=== PATIENT | female | born 1945 | race Caucasian/White ===

== ENCOUNTER 2017-04-17 18:15 | Emergency (ER) | payer MEDICARE, OTHER ==
[~2017-04-17] VITALS: Ht 152.4 cm; Wt 76.5 kg
[~2017-04-17 18:15] MED LIST: MOXI400T PO
[2017-04-17 18:26] VITALS: Ht 152.4 cm; Wt 76.5 kg
[2017-04-17] MEDS ORDERED: morphine 4 MG/ML VIAL IM STA (19:16)
[2017-04-17] MEDS ORDERED: ONDANSETRON (ODT) 4 MG TAB ODT STA (19:16)
--- NOTE | 2017-04-17 19:20 | ERD ---
ER Documentation Chief Complaint Chief Complaint pain right side of neck x 4 days. denies injury. seen at [facility] er for same HPI Otherwise healthy 71-year-old female presenting with the chief complaints of 10 out of 10 at neck and right shoulder pain 4 days. No trauma. Denies any medical history. No similar symptoms in the past. Was seen at [facility] 3 days ago. X-rays were unremarkable. Has been taking in [place] without relief. Worse with movement. Patient has no other complaints and describes no other associated manifestations. Nursing notes have been reviewed and are consistent with history given. ROS All systems reviewed and are negative except as per history of present illness. Medications Home Meds Active Scripts Moxifloxacin Hcl* (Avelox*) 400 Mg Tablet, 400 MG PO DAILY for 5 Days, TAB Prov:CYNTHIA RICHARDS 03/25/14 Allergies Allergies: Coded Allergies: cefazolin (Verified Allergy, Severe, 03/22/14) Penicillins (Verified Allergy, Unknown, 03/22/14) clarithromycin (Verified Allergy, Unknown, 03/22/14) metronidazole (Verified Allergy, Unknown, 03/22/14) PMhx/Soc Medical and Surgical Hx: pt denies Medical Hx History of Surgery: Yes (back, B/L shoulder, R knee, L TKR, L THR) Anesthesia Reaction: No Hx Neurological Disorder: No Hx Respiratory Disorders: No Hx Cardiac Disorders: No Hx Psychiatric Problems: No Hx Miscellaneous Medical Probl: No Hx Alcohol Use: No Hx Substance Use: No Hx Tobacco Use: No Smoking Status: Never smoker Physical Exam Vitals Vital Signs Date Time Temp Pulse Resp B/P Pulse Ox O2 Delivery O2 Flow Rate FiO2 04/17/17 18:26 99.0 81 20 166/89 98 Physical Exam Const: [] Head: Atraumatic Eyes: Normal Conjunctiva ENT: Normal External Ears, Nose and Mouth. Neck: Limited range of motion secondary to pain. No midline tenderness. No meningismus or stiffness. Resp: Clear to auscultation bilaterally Cardio: Regular rate and rhythm, no murmurs Abd: Soft, non tender, non distended. Normal bowel sounds Skin: No petechiae or rashes Back: No midline or flank tenderness Ext: Tenderness palpation of the right ACJ and right clavicle. No obvious deformity. Neur: Awake and alert Psych: Normal Mood and Affect Results 24 hrs Current Medications Medications (Trade) Dose Ordered Sig/Florentino Route PRN Reason Start Time Stop Time Status Last Admin Dose Admin Morphine Sulfate (morphine) 4 mg ONCE STAT IM 04/17/17 19:16 04/17/17 19:18 DC 04/17/17 19:37 Ondansetron HCl (Zofran Odt) 4 mg ONCE STAT ODT 04/17/17 19:16 04/17/17 19:18 DC 04/17/17 19:38 Procedures/MDM 8-year-old female presents with a chief complaint of neck pain 4 days. No trauma. Physical exam showed a pain with motion. Moderate tenderness palpation over the clavicle. No midline tenderness. X-ray of the shoulder was obtained and was largely unremarkable. CT of the cervical spine was obtained read by the radiologist given the following impression: 1. Negative for evidence of acute fracture or traumatic subluxation of the cervical spine. 2. Multilevel degenerative disc disease and right uncovertebral arthritis with multilevel central canal stenosis and right intervertebral foraminal stenosis. Mild facet joint arthritis at C7-T1 with grade 1 anterolisthesis. At this time most likely diagnosis is a soft tissue shoulder injury versus degenerative disc disease versus arthritis. I have little suspicion for acute bony pathology or neurovascular compromise. I have recommended that the patient continue the [place] she was given. Follow-up with PCP in the next 2-3 days. States that she has a appointment with PCP tomorrow. I have spoke with the patient regarding their condition and future management. They have verbally responded that they understand their status and treatment plan. The patients vitals are stable, and their current condition is appropriate for discharge. Results of CT and x-ray have been given. The patient will be given discharge instructions with return precautions. Departure Diagnosis: Primary Impression: Neck pain Condition: Stable Additional Instructions: Follow up with your PCP within the next 1-3 days for a more thorough evaluation and a possible referral to a specialist. Return the the emergency department immediately if symptoms worsen or change. If you have any questions regarding medications, ask your pharmacist or us before you leave. If any adverse reactions occur while taking your medications, discontinue the treatment and return to the emergency department immediately. Take your medications as directed, and complete the entire course of treatment. YAMILET FERNANDEZ PA-C Apr 17, 2017 19:20
--- NOTE | 2017-04-17 20:23 | RADRPT ---
PROCEDURE: XR Right Shoulder. CLINICAL INDICATION: Right shoulder pain. TECHNIQUE: Three views. Frontal internal rotation, frontal external rotation, and oblique. COMPARISON: No prior study is available for comparison. FINDINGS: There is no fracture or dislocation. The soft tissues are normal. Articular surfaces are intact. There is no lytic or blastic lesion. There is no radiopaque foreign body. IMPRESSION: 1. Normal images of the right shoulder. RPTAT: QQ .Kirit Fisher MD, MD Date Time Electronically viewed and signed by .Kirit Fisher MD, on 04/17/2017 20:23 .R/
--- NOTE | 2017-04-17 20:53 | RADRPT ---
PROCEDURE: XR Cervical Spine. CLINICAL INDICATION: 71 years of age, female. Neck pain. TECHNIQUE: Three views of the cervical spine. Lateral, AP and open mouth odontoid. COMPARISON: None available. FINDINGS: Lateral view images from the skull base to C7. Cervicothoracic junction is obscured on the lateral v iew. There is grade 1 retrolisthesis at C3-4 and at C4-5. Alignment is otherwise anatomic. Negative for evidence of acute fracture or traumatic subluxation from the skull base to C7. Bones are osteopenic. Vertebral body heights are maintained. No suspicious bone lesions. There is degenerative disc disease with disc space narrowing and osteophytes greatest at C3-4 and C4 -5. There is arthritis of the bilateral uncovertebral joints with sclerosis and osteophytes from C3- C7. Negative for abnormal prevertebral soft tissue swelling. Visualized aerodigestive tract appears normal. Lung apices are unremarkable. IMPRESSION: 1. Degenerative disc disease and uncovertebral arthritis in the lower cervical spine as described. T here is mild degenerative retrolisthesis at C3-4 and C4-5. 2. The cervicothoracic junction is not well visualized on the lateral view. If there is a history of trauma, additional imaging is warranted. RPTAT: HCTS Physician Tristan Date Time Electronically viewed and signed by Physician Tristan on 04/17/2017 20:16 /
--- NOTE | 2017-04-17 21:01 | RADRPT ---
PROCEDURE: CT CERVICAL SPINE WITHOUT CONTRAST CLINICAL INDICATION: 71 years of age, female. Neck pain. TECHNIQUE: A CT of the cervical spine was performed utilizing thin section axial images from the s kull base through the thoracic inlet. Coronal and sagittal reformatted images were obtained from th e axial source images. Images were reviewed on a high-resolution PACS workstation. The CTDIvol is 22 mGy and the DLP is 424 mGy-cm. One or more of the following dose reduction techniques were used: - Automated exposure control. - Adjustment of the mA and/or kV according to patient size. - Use of iterative reconstruction technique. COMPARISON: None available. FINDINGS: Cervical spine is imaged from the skull base to T3 Alignment: There is grade 1 anterolisthesis at C7-T1. Alignment is otherwise anatomic. Vertebrae: Bones are osteopenic. No suspicious bone lesions. Vertebral body heights are maintained. Vertebral b odies and posterior elements are intact without acute fracture. Disks and Facets: There is multilevel degenerative disc disease and uncovertebral arthritis resulting in multilevel st enosis. Atlanto-occipetal joints: Unremarkable. C1-C2: There is arthritis at the atlantoaxial joint with joint space narrowing and sclerosis. C2-3: Disc is unremarkable. Facet joints are unremarkable. Negative for significant stenosis or nerv e root compression. C3-4: Degenerative disc disease with small posterior disc osteophyte complex. Right uncovertebral os teophytes. Facet joints are unremarkable. Mild central canal stenosis and moderate right interverteb ral foraminal stenosis. C4-5: Degenerative disc disease with posterior disc osteophyte complex. Right uncovertebral osteoph ytes. Facet joints are unremarkable. Mild central canal stenosis and moderate right intervertebral f oraminal stenosis. C5-6: Degenerative disc disease with posterior disc osteophyte complex. Right uncovertebral osteop hytes. Facet joints are unremarkable. Moderate central canal stenosis and moderate to severe right intervertebral foraminal stenosis. C6-C7: Disc is unremarkable. Facet joints are unremarkable. Negative for significant stenosis or ne rve root compression. C7-T1: Disc is unremarkable. Left greater than right facet joint arthritis. Grade 1 degenerative an terolisthesis. Negative for significant stenosis or nerve root compression. Extra-vertebral soft tissues: Normal. Additional comment: None. IMPRESSION: 1. Negative for evidence of acute fracture or traumatic subluxation of the cervical spine. 2. Multilevel degenerative disc disease and right uncovertebral arthritis with multilevel central ca nal stenosis and right intervertebral foraminal stenosis. Mild facet joint arthritis at C7-T1 with g rade 1 anterolisthesis. RPTAT: HCTS Antoinette Madera, Physician Date Time Electronically viewed and signed by Antoinette Madera, Physician on 04/17/2017 21:00 CS/
[2017-04-17 21:27] VITALS: BP 134/72; PULSE 67; RESP 20
== END 2017-04-17 21:28 | disposition home or self-care (01) ==
LOC: FTE 18:15
DX: M54.2 Cervicalgia (principal)
CPT/HCPCS: 72040; 72125; 73020; 93005; 96372; 99285; J2270